=== PATIENT | female | born 1970 | race Caucasian/White ===

== ENCOUNTER 2023-06-26 14:27 | Observation (INO) | payer OTHER, BC ==
[2023-06-26 15:57] LABS: #Eosinphils 0.2 thou/uL (0.0-0.7); #Monocytes 0.7 thou/uL (0.11-0.59); #Neutrophils 5.5 thou/uL (1.40-6.50); %Basophils 0.2 % (0.0-1.0); %Eosinophils 1.6 % (0.0-10.0); %Lymphocytes 32.8 % (21.0-51.0); %Monocytes 6.9 % (0.0-10.0); %Neutrophils 57.8 % (42.0-75.0); Hematocrit 45.7 % (36.0-47.0); Hemoglobin 14.9 g/dL (12.0-16.0); Mean Corpuscular HGB CONC 32.6 g/dL (32.0-36.0); Mean Corpuscular Hemoglobin 32.7 pg (27.0-31.0); Mean Corpuscular Volume 100.2 fl (78.0-98.0); Mean Platelet Volume 10.1 fL (7.4-10.4); Platelet Count 219 10x3/uL (130-400); RBC Distribution Width 13.9 % (11.5-14.5); Red Blood Cell (RBC) Count 4.56 mill/uL (4.20-5.40); White Blood Cell (WBC) Count 9.6 10x3/uL (4.8-10.8)
[2023-06-26 16:23] LABS: ALT (SGPT) 16 U/L (8-55); AST (SGOT) 16 U/L (5-34); Albumin 4.7 g/dL (3.5-5.0); Alcohol Less than 10.0 mg/dL (Less than 10); Alkaline Phosphatase 87 U/L (40-110); Anion Gap 19 mmol/L (10-20); BUN (Urea Nitrogen) 16 mg/dL (9.8-20.1); Bilirubin, Total 0.3 mg/dL (0.2-1.2); Calc. Creatinine Clearance 0 mL/min (70-130); Calcium 9.5 mg/dL (7.8-10.44); Carbon Dioxide 23 mmol/L (22-29); Chloride 102 mmol/L (98-107); Estimated GFR 85; Globulin 2.7 g/dL (2.4-3.5); Glucose 83 mg/dL (70-105); Potassium 4.1 mmol/L (3.5-5.1); Protein, Total 7.4 g/dL (6.0-8.3); Sodium 140 mmol/L (136-145)
[2023-06-26] MEDS ORDERED: Senokot S 8.6-50 MG TAB PO PRN (17:44)
[2023-06-26] MEDS ORDERED: Acetaminophen 325 MG TAB PO PRN (17:44)
[2023-06-26] MEDS ORDERED: Dextrose 5% in Water 1,000 ML IV PRN (17:56)
[2023-06-26] MEDS ORDERED: Glucagon 1 MG/ML KIT IM PRN (17:56)
[2023-06-26] MEDS ORDERED: Dextrose 50% Abboject 50 ML SYRINGE SLOW IVP PRN (17:56)
[2023-06-26] MEDS ORDERED: HumaLOG 300 UNITS/3 ML VIAL SC PRN (17:56)
[2023-06-26] MEDS ORDERED: Atorvastatin Calcium 40 MG TAB PO SCH (21:00)
[2023-06-26] MEDS: Buprenorphine HCl 2 MG SL TAB PO SCH (22:23)
[2023-06-26] MEDS: Metoprolol Tartrate 25 MG TAB PO SCH (22:23)
[2023-06-26] MEDS: Famotidine 20 MG TAB PO SCH (22:24)
[2023-06-26 22:31] VITALS: BMI 41.3
[2023-06-27 04:37] LABS: #Eosinphils 0.1 thou/uL (0.0-0.7); #Monocytes 0.4 thou/uL (0.11-0.59); #Neutrophils 3.2 thou/uL (1.40-6.50); %Basophils 0.3 % (0.0-1.0); %Lymphocytes 37.5 % (21.0-51.0); %Monocytes 6.7 % (0.0-10.0); %Neutrophils 52.7 % (42.0-75.0); Hematocrit 37.7 % (36.0-47.0); Hemoglobin 12.4 g/dL (12.0-16.0); Mean Corpuscular HGB CONC 32.9 g/dL (32.0-36.0); Mean Corpuscular Hemoglobin 32.5 pg (27.0-31.0); Mean Platelet Volume 9.7 fL (7.4-10.4); Platelet Count 213 10x3/uL (130-400); RBC Distribution Width 13.9 % (11.5-14.5); Red Blood Cell (RBC) Count 3.81 mill/uL (4.20-5.40); White Blood Cell (WBC) Count 6.1 10x3/uL (4.8-10.8)
[2023-06-27 05:24] LABS: ALT (SGPT) 9 U/L (8-55); AST (SGOT) 11 U/L (5-34); Alkaline Phosphatase 69 U/L (40-110); Anion Gap 11 mmol/L (10-20); BUN (Urea Nitrogen) 12 mg/dL (9.8-20.1); Bilirubin, Total 0.3 mg/dL (0.2-1.2); Calc. Creatinine Clearance 184 mL/min (70-130); Calcium 8.8 mg/dL (7.8-10.44); Carbon Dioxide 30 mmol/L (22-29); Chloride 104 mmol/L (98-107); Estimated GFR 105; Glucose 80 mg/dL (70-105); Potassium 4.1 mmol/L (3.5-5.1); Sodium 141 mmol/L (136-145)
[2023-06-27] MEDS: Buprenorphine HCl 2 MG SL TAB PO SCH ×2 (05:33→14:34)
[2023-06-27] MEDS ORDERED: DULoxetine 60 MG CAP PO SCH (09:00)
[2023-06-27] MEDS ORDERED: Naloxegol 12.5 MG TAB PO SCH (09:00)
[2023-06-27] MEDS ORDERED: Rivaroxaban 10 MG TAB PO SCH (09:00)
[2023-06-27] MEDS: Metoprolol Tartrate 25 MG TAB PO SCH (10:24)
[2023-06-27] MEDS: Famotidine 20 MG TAB PO SCH (10:24)
[2023-06-27 12:50] VITALS: BP 145/77; TEMP 97.6
== END 2023-06-27 15:30 | disposition home or self-care (01) ==
LOC: ERS 14:27 → 2NO 17:23
PROVIDERS: ADMIT Student in an Organized Health Care Education/Training Program; ATTEND Family Medicine
DX: R55 Syncope and collapse (principal); E11.69 Type 2 diabetes mellitus with other specified complication; I26.99 Other pulmonary embolism without acute cor pulmonale; I10 Essential (primary) hypertension; E11.42 Type 2 diabetes mellitus with diabetic polyneuropathy; E78.5 Hyperlipidemia, unspecified; G47.33 Obstructive sleep apnea (adult) (pediatric); F11.20 Opioid dependence, uncomplicated; E66.9 Obesity, unspecified; Z68.41 Body mass index [BMI] 40.0-44.9, adult; Z79.85 Long-term (current) use of injectable non-insulin antidiabetic drugs; Z79.899 Other long term (current) drug therapy; Z88.6 Allergy status to analgesic agent; Z79.01 Long term (current) use of anticoagulants
CPT/HCPCS: 36415; 36416; 70450; 71045; 72125; 80053; 80307; 85025; G0378; J0571